=== PATIENT | male | born 2000 | race Hispanic/Latino ===

== ENCOUNTER 2022-02-18 20:22 | Emergency (ER) | payer OTHER, SELFPAY ==
[2022-02-18] MEDS ORDERED: Acetaminophen 500 MG TAB ONE (20:39)
[2022-02-18 22:08] LABS: SARS-CoV-2 NAA Rapid Test Not Detected (NotDetected)
== END 2022-02-18 21:02 | disposition home or self-care (01) ==
LOC: ERS 20:22
DX: J06.9 Acute upper respiratory infection, unspecified (principal); Z20.822 Contact with and (suspected) exposure to COVID-19
CPT/HCPCS: 87804; 99283; U0002